=== PATIENT | female | born 1980 | race Caucasian/White ===

== ENCOUNTER 2018-02-17 17:52 | Emergency (ER) | payer OTHER, SELFPAY ==
[2018-02-17 17:53] VITALS: BP 160/102; PULSE 90; RESP 16; TEMP 36.6; O2SAT 99; BMI 35.5
--- NOTE | 2018-02-17 19:06 | EKG12_ITS ---
Test Reason : Blood Pressure : / mmHG Vent. Rate : 081 BPM Atrial Rate : 081 BPM P-R Int : 160 ms QRS Dur : 096 ms QT Int : 392 ms P-R-T Axes : 021 -02 001 degrees QTc Int : 455 ms Normal sinus rhythm Nonspecific T wave abnormality Abnormal ECG Confirmed by MARTINEZ THAO, LIZZIE ([id number]), deputy editor in chief GERMAINE SIDHU ([id number] on 02/21/2018 10:41:57 AM Referred By: Health Assessment Confirmed By:LIZZIE HENRIQUEZ MD
--- NOTE | 2018-02-17 19:07 | CT_ITS ---
STUDY: CTA CHEST REASON FOR EXAM: Female, 37 years old. Back pain RADIATION DOSAGE (If Supplied By Facility): CTDIvol = ( 19.60 ) mGy, DLP = ( 600.80 ) mGycm TECHNIQUE: The examination was performed with the intravenous administration of 100 ml of Isovue 370 contrast material. Post-processing of the angiographic images was performed, with multiplanar reformation and 3D reconstruction. Individualized dose optimization techniques were used for this CT. COMPARISON: None. FINDINGS: Normal enhancement of the main pulmonary artery and right and left pulmonary arteries. Normal enhancement of the bilateral peripheral pulmonary arteries. There is no demonstrated pulmonary embolism. Normal thoracic aorta and visualized great vessels. There is no demonstrated aortic dissection. Normal heart and pericardium. Normal mediastinum. Normal hilar regions. Normal visualized trachea and bronchi. The lungs are well expanded. Normal pulmonary parenchyma. Normal pleura. Normal chest wall structures. There are degenerative changes of thoracic spine. The limited images of the upper abdomen demonstrate a diffusely low in attenuation liver consistent fatty infiltration. CT/CTA Chest W/WO Contrast IMPRESSION: Degenerative changes of the thoracic spine. Fatty infiltration of the liver. Electronically Signed: Erlinda Bridges MD at 20:56 EDT Tel , Service support ,
--- NOTE | 2018-02-17 19:20 | RAD_ITS ---
STUDY: X-RAY CHEST REASON FOR EXAM: Female, 37 years old. Chest pain TECHNIQUE: Single frontal view of the chest. COMPARISON: May 26, 2017 FINDINGS: The lungs are clear and expanded. There is no demonstrated pleural abnormality. Normal size heart. Normal mediastinum and chikis. Normal visualized pulmonary arteries. Normal visualized aortic arch and descending thoracic aorta. Normal visualized thoracic spine. Normal visualized ribs, clavicles, and shoulders. There is no demonstrated abnormality of the visualized soft tissue structures of the upper abdomen. RAD/Chest 1 View (Portable) IMPRESSION: No acute cardiopulmonary process. Electronically Signed: Erlinda Bridges MD at 20:12 EDT Tel , Service support ,
[2018-02-17 19:55] LABS: Anion Gap 5 (5-15); BUN 11 mg/dL (7-18); BUN/Creat Ratio 15.3 RATIO (10-20); Calcium,Total 9.4 mg/dL (8.5-10.1); Chloride 106 mmol/L (98-107); Creatinine, Serum 0.72 mg/dL (0.55-1.02); EST Glomerular Filtration Rate 97 mL/min (>60); Est Glom Filt Rate - Afr Amer 118 mL/min (>60); Estimated Creatinine Clearance 101.12 ml/min; Glucose 90 mg/dL (74-106); Potassium 4.7 mmol/L (3.5-5.1); Sodium Level 137 mmol/L (136-145)
[2018-02-17] MEDS: 0.9% Normal Saline 1,000 ML 150 ML IV (19:58)
[2018-02-17 20:06] LABS: Hematocrit 47.1 % (37-47); Hemoglobin 15.4 g/dl (12.0-15.0); Mean Corp Hgb Conc 32.7 g/gl (32-36); Mean Corpuscular Hgb 27.5 pg (27.0-32.0); Mean Corpuscular Volume 84.3 fL (81-99); Mean Platelet Vol. 11.1 fl (6.2-12.0); Platelet Count 267 K/mm3 (150-450); RBC Distribution Width CV 13.3 % (11.6-14.6); RBC Distribution Width SD 41.2 fl (35.1-43.9); Red Blood Count 5.59 M/mm3 (4.2-5.4); White Blood Count 8.3 K/mm3 (4.4-11.0)
[2018-02-17 20:07] LABS: Scan Indicated on CBC? Y/N NO
--- NOTE | 2018-02-17 20:21 | ED.DCSUM_ITS ---
- ER Visit Summary Date of Service: 02/17/18 Chief Complaint: Back pain History of Present Illness: The patient is a 37 F who reports developing sharp back pain from her chest to her left scapula that lasted approximately 30 seconds this afternoon while sitting at rest. This was then followed by back spasm which is still achy in nature. She states she also had some swelling to the left side the neck that occurred at the same time. This seems to be now improving. Patient denies significant shortness of breath. She has no DVT risk factors. Physical Examination: Blood pressure significant for 1 6102, other vitals are normal. Head neck examination is unremarkable. I do not find any focal neck tenderness. Heart is regular rate and rhythm. On lung sounds are clear. Chest wall is nontender. Abdomen is soft nontender. Back examination was no reproducible tenderness. Extremity examination was normal strength and sensation throughout with strong distal pulses. Test Results: EKG is sinus at [address] change. Portable chest x-ray shows no acute process. CBC reveals hemoglobin slightly concentrated at 15.4. Chemistry studies are normal. Troponin is negative. CTA of the chest is obtained and shows degenerative changes of the thoracic spine. No evidence of PE or dissection. Emergency Department Course and Treatment: Patient declined anything for pain while here. She was observed on gambling monitor throughout. On repeat evaluation she denies any pain. Test results were discussed with patient and at bedside. She is encouraged to return for any recurrent symptoms. Treatment Plan: [] Disposition: Discharge Impression: Chest pain, uncertain etiology, resolved This note was generated with [employer] dictation software. It may contain incorrect words, spelling, and punctuation that were not noted in review of the chart prior to signing ED Disposition - Plan for ED Patient: Chief Complaint: Back Referrals: Salud Salinas MD [Primary Care Provider] -
[2018-02-17 21:05] LABS: Pregnancy, Serum, hCG Quali. NEGATIVE Negative (0-9 Nonpreg)
[2018-02-17 21:06] VITALS: BP 123/87; PULSE 63; RESP 12; O2SAT 99
[2018-02-17 21:47] VITALS: BP 128/97; PULSE 66; O2SAT 97
--- NOTE | 2018-02-17 21:47 | ED.DEP ---
ED Disposition - Plan for ED Patient: Disposition: Home or Assisted Living Chief Complaint: Back Instructions: ED Chest Pain Atypical Unkn Cause Referrals: Salud Salinas MD [Primary Care Provider] - As Needed
[2018-02-17 22:08] VITALS: BP 128/97
== END 2018-02-17 22:10 | disposition home or self-care (01) ==
PROVIDERS: Emergency Provider Emergency Medicine; Family Provider Internal Medicine; PCP Internal Medicine
DX: R07.9 Chest pain, unspecified (principal); Z72.0 Tobacco use
CPT/HCPCS: 71045; 71275; 80048; 84484; 84703; 85027; 93005; 96360; 96361; 99285; J7030; Q9967; A4216

== ENCOUNTER 2019-09-30 12:55 | Emergency (ER) | payer OTHER, SELFPAY ==
[2019-01-26 14:11] VITALS: BMI 35.5
[2019-09-30 12:57] VITALS: BP 147/91; PULSE 121; RESP 17; TEMP 38.3; O2SAT 92; BMI 35.8
[2019-09-30 13:11] VITALS: BP 147/91; PULSE 117; RESP 16; TEMP 38.5; O2SAT 91
--- NOTE | 2019-09-30 13:20 | EKG12_ITS ---
Test Reason : Blood Pressure : / mmHG Vent. Rate : 109 BPM Atrial Rate : 109 BPM P-R Int : 138 ms QRS Dur : 092 ms QT Int : 324 ms P-R-T Axes : 052 021 030 degrees QTc Int : 436 ms Sinus tachycardia Possible Left atrial enlargement Borderline ECG Confirmed by MARTINEZ THAO, LIZZIE ([id number]), film or videotape editor LCEMENTE SHEPHERD ([id number]) on 10/02/2019 8:17:16 AM Referred By: JEREMIAH Confirmed By:LIZZIE HENRIQUEZ MD
--- NOTE | 2019-09-30 13:44 | ED.VIS.GEN ---
History of Present Illness Chief Complaint: Cold Sx Informant: Patient Onset: Days - 5 days Context: Gradual Onset Current Severity: Moderate Maximum Severity: Moderate Narrative: Patient presents with flulike symptoms with cough, congestion, fever that started last Tuesday. She was seen at urgent care on Tuesday and had a rapid flu that was negative. She was seen by her doctor on Tuesday who went ahead and started her on Tamiflu because her symptoms are consistent with influenza. Patient presents to the ER today stating overall she is just not feeling better. She now has a sore throat and left ear pain as well. She is not been eating quite as much as normal. Last dose of Tylenol was at 10 AM this morning. Past Medical History - Allergies and Home Meds Allergies/Adverse Reactions: Allergies No Known Allergies Allergy (Verified 09/30/19 12:56) Primary Care Physician: Salud Salinas MD [Primary Care Provider] - Past Medical History: None Lives: Spouse/ Significant Other Smoking Status: Current every day smoker Review of Systems General: Reports: Chills, Fever Eyes: Denies: Visual changes - bilaterally ENT: Reports: Left ear pain Cardiovascular: Denies: Chest pain Respiratory: Reports: Dyspnea, Cough Gastrointestinal: Denies: Vomiting Musculoskeletal: Reports: Myalgias Neurological: Denies: Headache Hematologic: Denies: Easy bruising, Easy bleeding Allergy: Denies: Uticaria Physical Exam Vital Signs/Narrative: Vital Signs Temp Pulse Resp BP Pulse Ox 09/30/19 13:11 101.3 F H 117 H 16 147/91 H 91 09/30/19 12:57 100.9 F H 121 H 17 147/91 H 92 Inital Vital Signs reviewed: Yes General: Well nourished, Well developed Head: Normocephalic ENT: Moist mucous membranes, - - Ear canals are erythematous bilaterally. Left TM is clear. Right TM has some slight hazy fluid behind it. Posterior pharynx exam is unremarkable. Neck: Supple Cardiovascular: Tachycardia Respiratory: No distress, CTA bilaterally - Diminished on left base Abdomen: Soft, Nontender Extremities: Nontender Skin: Normal color, No rash Neurological: Alert, Oriented x3 Psychological: Normal affect Diagnostic/Tx/Re-eval Impressions Chest X-Ray 09/30/19 14:12 IMPRESSION: Left lingular left lower lobe pneumonia. Electronically Signed: Juanita Rebolledo MD at 14:54 EST Tel , Service support , 09/30/19 14:12 Chest PA and Lateral [RAD] Stat Laboratory Results 09/30/19 09/30/19 09/30/19 13:45 13:55 13:55 WBC 10.7 RBC 5.84 H Hgb 15.7 H Hct 49.0 H MCV 83.9 MCH 26.9 L MCHC 32.0 RDW Std Deviation 42.5 RDW Coeff of Johan 13.8 Plt Count 263 MPV 10.6 Immature Gran % (Auto) 0.400 Neut % (Auto) 73.0 H Lymph % (Auto) 16.7 L Mcdonald % (Auto) 8.8 Eos % (Auto) 0.6 Baso % (Auto) 0.5 Absolute Neuts (auto) 7.8 H Absolute Lymphs (auto) 1.78 Nucleated RBC % 0 Sodium 137 Potassium 3.5 Chloride 105 Carbon Dioxide 25.0 Anion Gap 7 BUN 8 Creatinine 0.86 Estim Creat Clear Calc 83.03 Est GFR (MDRD) Af Amer 94 Est GFR (MDRD) Non-Af 78 BUN/Creatinine Ratio 9.2 L Glucose 100 Calcium 9.0 Urine Color Yellow Urine Clarity Clear Urine pH 5.0 Ur Specific [place] 1.020 Urine Protein 30 H Urine Glucose (UA) Normal Urine Ketones 150 H Urine Occult Blood 50 H Urine Nitrite Negative Urine Bilirubin Negative Urine Urobilinogen Normal Ur Leukocyte Esterase 25 H Urine RBC 0 SEEN Urine WBC 0-5 SEEN Ur Squamous Epith Cells 0-5 SEEN Urine Bacteria 0 SEEN Urine Mucus 0 SEEN - EKG Initial EKG Interpretation: Sinus Tachycardia - Sinus tach at 109. No acute ischemia. QTC is 436. - Medical Decision Making Patient is given Toradol and a liter of IV fluids. On repeat evaluation she does feel improved. Test results are discussed with patient and at bedside. She does have evidence of an infiltrate will be treated with a course of Levaquin. Family asked about stopping the Tamiflu. It was started well outside the 48-hour window and advised them that she can stop this medication if she wishes. ED Disposition - Plan for ED Patient: Disposition: Home or Assisted Living Diagnosis: Pneumonia Instructions: PNEUMONIA (Adult) Prescriptions: Levofloxacin [Levaquin] 750 mg PO DAILY #4 tab Transmission Status: Pending to [id number] [facility] Referrals: Salud Salinas MD [Primary Care Provider] - 5-7 Days
[2019-09-30 13:54] LABS: Bacteria 0 SEEN /hpf (None Seen); Mucous, Urine 0 SEEN /hpf (<or=2+); Red Blood Cells-Urine 0 SEEN /hpf (0-5)
[2019-09-30 13:55] LABS: Color, Urine Yellow (Yellow); Glucose, Dipstick Normal (Normal); Leukocyte Esterase-Dipstick 25 /ul (Negative); Nitrite-Dipstick Negative (Negative); Occult Blood-Urine 50 /ul (Negative); Protein-Dipstick 30 mg/dl (Negative); Urine Bilirubin Dipstick Negative (Negative); Urine Clarity Clear (Clear); Urine Urobilinogen Normal (Normal)
[2019-09-30] MEDS: 0.9% Normal Saline 1,000 ML 1000 ML IV (13:56)
[2019-09-30 13:58] LABS: Ketone-Dipstick 150 mg/dl (Negative)
[2019-09-30 14:04] VITALS: BP 114/83; PULSE 101; RESP 16; TEMP 38.1; O2SAT 91
[2019-09-30] MEDS: Ketorolac 30 MG/ML Syringe IV (14:04)
[2019-09-30 14:07] LABS: Absolute Lymphocyte Count 1.78 X10^3/uL (0.83-4.51); Absolute Neutrophil Count 7.8 X10^3/uL (2.0-7.7); Basophil# 0.05 X10^3/uL; Basophil% 0.5 % (0-1); Eosinophil# 0.06 X10^3/uL; Eosinophils% 0.6 % (0-5); Hemoglobin 15.7 g/dL (12.0-15.0); Lymphocyte # 1.78 X10^3/ul (4.0); Lymphocyte % 16.7 % (19-41); Mean Corpuscular Hgb 26.9 pg (27.0-32.0); Mean Corpuscular Volume 83.9 fL (81-99); Mean Platelet Vol. 10.6 fl (6.2-12.0); Monocyte# 0.94 X10^3/uL; Monocyte% 8.8 % (0-10); NRBC Flagged by Analyzer 0 % (0-5); Neutrophil # 7.82 X10^3/uL (2.7-7.7); Platelet Count 263 K/mm3 (150-450); RBC Distribution Width CV 13.8 % (11.6-14.6); RBC Distribution Width SD 42.5 fl (35.1-43.9); Red Blood Count 5.84 M/mm3 (4.2-5.4); White Blood Count 10.7 K/mm3 (4.4-11.0)
[2019-09-30 14:09] LABS: Squamous Epithelial Cells - UA 0-5 SEEN /hpf (5-10); White Blood Cells 0-5 SEEN /hpf (0-5)
--- NOTE | 2019-09-30 14:12 | RAD_ITS ---
STUDY: X-RAY CHEST REASON FOR EXAM: Female, 39 years old. COLD SYMPTOMS TECHNIQUE: PA and lateral views of the chest. COMPARISON: February 17, 2018 FINDINGS: There are patchy left lower lobe and lingular opacities. There is no demonstrated pleural abnormality. Normal size heart. Normal mediastinum and chikis. Normal visualized pulmonary arteries. Normal visualized aortic arch and descending thoracic aorta. Normal visualized thoracic spine. Normal visualized ribs, clavicles, and shoulders. There is no demonstrated abnormality of the visualized soft tissue structures of the upper abdomen. RAD/Chest PA and Lateral IMPRESSION: Left lingular left lower lobe pneumonia. Electronically Signed: Juanita Rebolledo MD at 14:54 EST Tel , Service support ,
[2019-09-30 14:21] LABS: Anion Gap 7 (5-15); BUN 8 mg/dL (7-18); BUN/Creat Ratio 9.2 RATIO (10-20); Chloride 105 mmol/L (98-107); Creatinine, Serum 0.86 mg/dL (0.55-1.02); EST Glomerular Filtration Rate 78 mL/min (>60); Est Glom Filt Rate - Afr Amer 94 mL/min (>60); Estimated Creatinine Clearance 83.03 ml/min; Glucose 100 mg/dL (74-106); Potassium 3.5 mmol/L (3.5-5.1); Sodium Level 137 mmol/L (136-145)
[2019-09-30 15:15] VITALS: BP 114/80; PULSE 99; RESP 18; O2SAT 90
[2019-09-30] MEDS: levoFLOXacin 750 MG Tablet PO (15:48)
[2019-09-30 15:51] VITALS: BP 108/79; PULSE 92; RESP 18; O2SAT 93
== END 2019-09-30 15:52 | disposition home or self-care (01) ==
PROVIDERS: Emergency Provider Emergency Medicine; PCP Internal Medicine
DX: J18.9 Pneumonia, unspecified organism (principal); J02.9 Acute pharyngitis, unspecified; H92.02 Otalgia, left ear; Z72.0 Tobacco use
CPT/HCPCS: 71046; 80048; 81001; 85025; 93005; 96361; 96374; 99285; J7030

== ENCOUNTER 2020-05-26 19:15 | Outpatient (RCR) | payer OTHER, SELFPAY | END 2020-05-28 23:59 | LOC: EMPH 19:15 | PROVIDERS: PCP Internal Medicine; Visit Provider Family Medicine Geriatric Medicine | DX: Z11.59 Encounter for screening for other viral diseases (principal) | CPT/HCPCS: 87635; U0003 ==

== ENCOUNTER 2020-06-27 03:35 | Outpatient (RCR) | payer OTHER, SELFPAY ==
[2020-05-31 13:37] VITALS: BMI 35.8
== END 2020-06-28 23:59 ==
LOC: EMPH 03:35
PROVIDERS: PCP Internal Medicine; Visit Provider Family Medicine Geriatric Medicine
DX: Z03.818 Encounter for observation for suspected exposure to other biological agents ruled out (principal)
CPT/HCPCS: 87426

== ENCOUNTER 2020-07-23 07:37 | Outpatient (RCR) | payer OTHER, SELFPAY ==
[2020-05-31 13:37] VITALS: BMI 35.8
== END 2020-07-28 23:59 ==
LOC: EMPH 07:37
PROVIDERS: PCP Internal Medicine; Visit Provider Family Medicine Geriatric Medicine
DX: Z03.818 Encounter for observation for suspected exposure to other biological agents ruled out (principal)
CPT/HCPCS: 87426

== ENCOUNTER 2020-08-19 17:04 | Emergency (ER) | payer OTHER, SELFPAY ==
[2020-08-19 17:04] VITALS: BP 161/103; PULSE 86; RESP 16; TEMP 36.4; O2SAT 100; BMI 33.4
--- NOTE | 2020-08-19 17:21 | CT_ITS ---
STUDY: CT ABDOMEN AND PELVIS WITH CONTRAST REASON FOR EXAM: Female, 40 years old. LEFT FLANK PAIN WITH DYSURIA, EVAL FOR PYELONEPHRITIS RADIATION DOSAGE (If Supplied By Facility): CTDIvol = ( 19.59 ) mGy, DLP = ( 2142.26 ) mGycm TECHNIQUE: Transaxial images were obtained from the dome of the diaphragm to the symphysis pubis without oral contrast. IV 100mL Isovue-300 was administered. Sagittal and coronal images were reconstructed. Individualized dose optimization techniques were used for this CT. COMPARISON: None. FINDINGS: The visualized lung bases are unremarkable. The visualized portions of the heart are within normal limits. Normal liver. Normal gallbladder and extrahepatic biliary system. Normal spleen. Normal pancreas. Normal bilateral adrenal glands. There is a tiny nonobstructing left renal calculus. Position however there is mild pelvocaliectasis and hydroureter secondary to tiny calculus at the ureterovesical junction measuring approximately 2 mm in size.. Right kidneys normal Normal visualized stomach. Normal small intestine. Normal colon. The appendix is visualized and appears normal. Normal abdominal aorta. Normal inferior vena cava. Normal retroperitoneum. Incompletely distended thick-walled bladder likely of no significance. Postop change status post bilateral tubal ligation. Normal abdominal wall. Normal osseous structures. CT/Abdomen/Pelvis W IV Cont ONLY IMPRESSION: Left nephrolithiasis. Mild left hydroureteronephrosis secondary to tiny calculus in the distal ureter at the ureterovesical junction Electronically Signed: Santiago Feng MD at 18:52 EST , Service support ,
--- NOTE | 2020-08-19 17:25 | ED.VIS.GEN ---
History of Present Illness Chief Complaint: Flank Pain Informant: Patient Narrative: Patient is a 40-year-old previously female who presents to the emergency department for left flank pain. Started earlier today. She states she has had this pain before when she had a kidney infection. She said she has had some urinary frequency but denies any dysuria or hematuria. She denies any history of kidney stones. The pain is sharp in nature. She currently rates as a 7 out of 10. She tried taking Tylenol for this which did not give her any relief. She states she has been nauseous but not vomiting. She had a few episodes of loose bowel movements. She has had chills but no fevers. She does not know aggravating or relieving factors. No chest pain or shortness of breath. Past Medical History - Allergies and Home Meds Allergies/Adverse Reactions: Allergies No Known Allergies Allergy (Verified 08/19/20 17:06) Primary Care Physician: Nash Downs MD [STAFF PHYSICIAN] - 3-5 Days if not improving Salud Salinas MD [Primary Care Provider] - Prior records reviewed: Yes Smoking Status: Current every day smoker Review of Systems All systems negative except as indicated General: Reports: Chills. Denies: Fever, Sweats Eyes: Denies: Visual changes - bilaterally, Diplopia ENT: Denies: Rhinorrhea, Sore throat Cardiovascular: Denies: Chest pain, Palpitations Respiratory: Denies: Dyspnea, Cough, Dyspnea on exertion Gastrointestinal: Reports: Abdominal pain, Nausea. Denies: Vomiting, Diarrhea, Melena, Hematochezia Genitourinary: Reports: Frequency. Denies: Dysuria, Hematuria Musculoskeletal: Denies: Back pain, Extremity Pain Skin: Denies: Rash, Wounds Neurological: Denies: Headache, Weakness, Numbness Physical Exam Vital Signs/Narrative: Vital Signs Temp Pulse Resp BP Pulse Ox 08/19/20 17:04 97.6 F L 86 16 161/103 H 100 Inital Vital Signs reviewed: Yes General: Well nourished, Well developed, No Acute Distress Head: Normocephalic, Atraumatic Eyes: Perrl, EOMI ENT: Moist mucous membranes, No rhinorrhea Neck: Supple, Nontender Cardiovascular: Regular rate, Regular rhythm, No murmurs Respiratory: No distress, CTA bilaterally, Chest nontender Abdomen: Soft, Nondistended, Normal bowel sounds, Tender - Left lateral abdominal wall. No rebound or guarding.. Negative for: Vegas's sign Back: Nontender, Normal Inspection Extremities: Nontender, No edema Skin: Normal color, No rash Neurological: Alert, Oriented x3, Normal Strength, Normal Sensation Psychological: Normal affect, Normal Mood Diagnostic/Tx/Re-eval - Medical Decision Making Patient presents to the emergency department for left lateral abdominal wall. She was sent in by urgent care for further work-up. Will treat symptomatically with a dose of Toradol. Will check urinalysis, basic lab work and CT scan of the abdomen/pelvis. Lab work did not reveal any significant acute abnormality. Kidney function within normal limits. Urine did not show any signs of infection. CT scan did show a small partially obstructing ureteral stone. This is at the UVJ. Pain is well controlled. She will be sent home with pain medicine and referral for urology. If the pain becomes unbearable or shows any fever/chills she is to return to the emergency department. She understands and is agreeable this plan. She is discharged home in stable condition. All questions were answered. ED Disposition - Plan for ED Patient: Disposition: Home or Assisted Living Diagnosis: Ureterolithiasis, Flank pain, Hematuria Instructions: ED Kidney Stone w/ Colic Prescriptions: Naproxen [Naprosyn] 500 mg PO BID #14 tab Transmission Status: Received by [facility] Hydrocodone/Acetaminophen [[place] 5-325 Tablet] 1 ea PO Q6H 3 Days #10 tab Transmission Status: Received by [facility] Ondansetron [Zofran Odt] 4 mg PO Q8H PRN PRN #10 tab PRN Reason: Nausea Transmission Status: Received by [facility] Referrals: Saldu Salinas MD [Primary Care Provider] - Nash Downs MD [STAFF PHYSICIAN] - 3-5 Days if not improving
[2020-08-19 17:46] LABS: Absolute Lymphocyte Count 2.31 X10^3/uL (0.83-4.51); Absolute Neutrophil Count 5.5 X10^3/uL (2.0-7.7); Basophil# 0.06 X10^3/uL; Basophil% 0.7 % (0-1); Eosinophil# 0.14 X10^3/uL; Eosinophils% 1.6 % (0-5); Hematocrit 48.1 % (37-47); Hemoglobin 15.4 g/dL (12.0-15.0); Lymphocyte # 2.31 X10^3/ul (4.0); Lymphocyte % 26.8 % (19-41); Mean Corpuscular Hgb 27.7 pg (27.0-32.0); Mean Corpuscular Volume 86.7 fL (81-99); Mean Platelet Vol. 10.9 fl (6.2-12.0); Monocyte# 0.63 X10^3/uL; Monocyte% 7.3 % (0-10); NRBC Flagged by Analyzer 0 % (0-5); Neutrophil # 5.45 X10^3/uL (2.7-7.7); Neutrophil % 63.3 % (47-70); Platelet Count 274 K/mm3 (150-450); RBC Distribution Width CV 12.9 % (11.6-14.6); RBC Distribution Width SD 40.6 fl (35.1-43.9); Red Blood Count 5.55 M/mm3 (4.2-5.4); White Blood Count 8.6 K/mm3 (4.4-11.0)
[2020-08-19] MEDS: Ketorolac 15 MG/ML Vial IV (17:47)
[2020-08-19 17:49] LABS: Bacteria 0 SEEN /hpf (None Seen); White Blood Cells 0 SEEN /hpf (0-5)
[2020-08-19 18:08] LABS: Color, Urine Yellow (Yellow); Glucose, Dipstick Normal (Normal); Ketone-Dipstick Negative (Negative); Leukocyte Esterase-Dipstick 25 /ul (Negative); Nitrite-Dipstick Negative (Negative); Occult Blood-Urine 250 /ul (Negative); Protein-Dipstick 15 mg/dl (Negative); Specific Gravity, Urine 1.015 (1.002-1.030); Urine Bilirubin Dipstick Negative (Negative); Urine Clarity Clear (Clear); Urine Urobilinogen Normal (Normal); Urine pH 6.5 (5.0 - 8.0)
[2020-08-19 18:08] LABS: ALB/GLOB Ratio 1.2 RATIO (0.9-2.4); AST(SGOT) 10 U/L (15-37); Alanine Aminotransfer ALT/SGPT 23 U/L (13-56); Albumin, Serum 4.1 g/dL (3.2-5.0); Alkaline Phosphatase 71 U/L (45-117); Anion Gap 4 (5-15); BUN 12 mg/dL (7-18); BUN/Creat Ratio 14.9 RATIO (10-20); Calcium,Total 9.2 mg/dL (8.5-10.1); Chloride 107 mmol/L (98-107); Creatinine, Serum 0.81 mg/dL (0.55-1.02); EST Glomerular Filtration Rate 84 mL/min (>60); Est Glom Filt Rate - Afr Amer 102 mL/min (>60); Estimated Creatinine Clearance 87.29 ml/min; Globulin 3.4 g/dL (2.2-4.2); Glucose 94 mg/dL (74-106); Lipase 79 U/L (73-393); Protein, Total 7.5 g/dL (6.4-8.2); Sodium Level 138 mmol/L (136-145)
[2020-08-19 18:12] LABS: Internal QC Validated? YES +Cl - CLEAR BKGD; Pregnancy, Urine Negative Negative
[2020-08-19 18:20] LABS: Mucous, Urine 1+ /hpf (<or=2+); Red Blood Cells-Urine 25-50 SEEN /hpf (0-5); Squamous Epithelial Cells - UA 0-5 SEEN /hpf (5-10)
== END 2020-08-19 19:45 | disposition home or self-care (01) ==
PROVIDERS: Emergency Provider Emergency Medicine; PCP Internal Medicine
DX: N20.1 Calculus of ureter (principal); R10.9 Unspecified abdominal pain; R31.9 Hematuria, unspecified; F17.200 Nicotine dependence, unspecified, uncomplicated
CPT/HCPCS: 74177; 80053; 81001; 81025; 83690; 85025; 87086; 87088; 96374; 99283; Q9967; A4216

== ENCOUNTER 2020-08-27 14:40 | Outpatient (RCR) | payer OTHER, SELFPAY ==
[2020-05-31 13:37] VITALS: BMI 35.8
== END 2020-08-28 23:59 ==
LOC: EMPH 14:40
PROVIDERS: PCP Internal Medicine; Referring Provider Family Medicine Geriatric Medicine; Visit Provider Family Medicine Geriatric Medicine
DX: Z03.818 Encounter for observation for suspected exposure to other biological agents ruled out (principal)
CPT/HCPCS: 87426

== ENCOUNTER 2020-09-10 07:30 | Outpatient (RCR) | payer OTHER, SELFPAY | END 2020-09-28 23:59 | LOC: EMPH 07:30 | PROVIDERS: PCP Internal Medicine; Referring Provider Family Medicine Geriatric Medicine; Visit Provider Family Medicine Geriatric Medicine | DX: Z03.818 Encounter for observation for suspected exposure to other biological agents ruled out (principal) | CPT/HCPCS: 87426 ==

== ENCOUNTER 2020-10-20 08:05 | Outpatient (RCR) | payer OTHER, SELFPAY | END 2020-10-26 23:59 | LOC: EMPH 08:05 | PROVIDERS: PCP Internal Medicine; Referring Provider Family Medicine Geriatric Medicine; Visit Provider Family Medicine Geriatric Medicine | DX: Z03.818 Encounter for observation for suspected exposure to other biological agents ruled out (principal) ==

== ENCOUNTER 2021-05-04 15:00 | Emergency (ER) | payer OTHER, SELFPAY ==
[2021-05-04 15:01] VITALS: BP 157/109; PULSE 82; RESP 16; TEMP 36.7; O2SAT 97; BMI 35.5
[2021-05-04 15:47] VITALS: BP 157/109; PULSE 82; RESP 16; TEMP 36.7; O2SAT 97
--- NOTE | 2021-05-04 16:08 | RAD_ITS ---
STUDY: X-RAY CHEST REASON FOR EXAM: Female, 40 years old. chest pain TECHNIQUE: Single AP portable view of the chest. COMPARISON: 09/30/2019. FINDINGS: The lungs are clear and expanded. There is no demonstrated pleural abnormality. Normal size heart. Normal mediastinum and chikis. Normal visualized pulmonary arteries. Normal visualized aortic arch and descending thoracic aorta. Normal visualized thoracic spine. Normal visualized ribs, clavicles, and shoulders. There is no demonstrated abnormality of the visualized soft tissue structures of the upper abdomen. RAD/Chest 1 View (Portable) IMPRESSION: Normal x-ray examination of the chest. Electronically Signed: Celia Crum MD at 17:48 EDT Tel , Service support ,
--- NOTE | 2021-05-04 16:08 | EKG12_ITS ---
Test Reason : CP Blood Pressure : / mmHG Vent. Rate : 077 BPM Atrial Rate : 077 BPM P-R Int : 144 ms QRS Dur : 094 ms QT Int : 390 ms P-R-T Axes : 024 028 013 degrees QTc Int : 441 ms Normal sinus rhythm Normal ECG Confirmed by MEEK THAO, SHANE ([id number]), fashion editor CLEMENTE SHEPHERD ([id number]) on 05/06/2021 9:17:09 AM Referred By: ISAI Confirmed By:SHANE EDEN MD
--- NOTE | 2021-05-04 16:20 | ED.VIS.CHEST ---
HPI History of Present Illness Chief Complaint: Chest Pain Detail of Chief Complaint: Covid positive. Informant: patient Onset/Context/Timing Onset: Days Timing: Intermittent Quality: Positive for Dull Location: Right Chest Current Severity: Gone Maximum Severity: Mild Worsened By: Nothing Associated Symptoms: Positive for Cough; Negative for Nausea, Vomiting, Diaphoresis, Dyspnea, Fever, Lightheadedness, Acid Reflux and Palpitations Narrative Prior Similar Symptoms: No Recent Illness/Hospitalization: No CVD Risk Factors: Positive for Smoking; Negative for Hypertension, Diabetes, Hypercholesterolemia and Family History 1' </=55 PE Risk Factors: Negative for Recent Travel/Surgery, Recent Immobilization, Prior DVT or PE, Cancer and OCP + Smoking + >/=35 TAD Risk Factors: Negative for Marfan's Syndrome and Hypertension PFSH PFSH Medical History Back pain Chest pain Hemorrhoids Home Medications naproxen 500 mg PO BID #14 tab 08/19/20 [Rx Last Taken Unknown] ondansetron 4 mg PO Q8H PRN PRN #10 tab 08/19/20 [Rx Last Taken Unknown] Allergy/AdvReac Type Severity Reaction Status Date / Time No Known Allergies Allergy Verified 05/04/21 15:01 Surgical History History of laparoscopy Hx of section Hx of tympanostomy tubes Tubal ligation status Social History Smoking Status: Current every day smoker tobacco type: cigarettes alcohol intake: never ROS ROS ED ROS Narrative Denies recent illness yesterday. Started yesterday. Review of Systems ROS Unobtainable: Denies due to encephalopathy Constitutional Constitutional ED: Denies chills or fever(s) Eyes Eyes: Denies none or change in vision ENT ENT ED: Denies ear pain or sore throat Cardiovascular Cardiovascular: Reports as per HPI; Denies palpitations or racing heartbeat Respiratory/Chest Respiratory/Chest: Reports cough; Denies dyspnea or sputum Gastrointestinal Gastrointestinal: Denies abdominal pain, constipation, diarrhea, melena, nausea or vomiting Genitourinary Genitourinary ED: Denies dysuria or hematuria Musculoskeletal Musculoskeletal: Denies arthralgias or myalgias Integumentary Denies abscess or rash Neurologic Neurologic: Denies headache(s) Psychiatric Psychiatric: Denies depression Endocrine Endocrinology: Denies polyuria Hematologic/Lymphatic Hematologic/Lymphatic: Denies easy bruising Allergic/Immunologic Allergic/Immunologic ED: Denies urticaria EXAM Physical Exam Narrative Exam Narrative: Well-appearing 40-year-old female. No acute distress. Vital signs are stable afebrile. Pulse ox 97% on room air no signs of hypoxia. HEENT exam normal. Neck nontender no JVD no lymphadenopathy. Lungs have a few scattered expiratory wheezes. No rales or rhonchi. Equal symmetrical.. Heart regular rate and rhythm rate about 80 no murmur. Chest nontender. Abdomen soft nontender. Moving all 4 extremities. Calves are nontender without edema or cords. Back nontender. Neurologic exam normal. Const Vital Signs: 05/04/21 15:01 05/04/21 15:47 05/04/21 16:29 Temperature 98.0 F 98.0 F Temperature Source Temporal Temporal Pulse Rate 82 82 Respiratory Rate 16 16 Blood Pressure 157/109 H 157/109 H Blood Pressure Mean 125 125 Pulse Ox 97 97 95 Oxygen Delivery Method Room Air Room Air Room Air 05/04/21 17:03 Temperature Temperature Source Pulse Rate 59 L Respiratory Rate 15 Blood Pressure 109/90 H Blood Pressure Mean 96 Pulse Ox 95 Oxygen Delivery Method Room Air Positive well nourished and well developed; Negative for cachectic, contractures or unkempt General Appearance ED: well developed and NAD; Negative for unkempt, cachectic, contractures or pallor Nutritional Appearance: Negative for cachectic HEENT Reports moist mucous membranes normocephalic and atraumatic; Negative for trauma or tenderness Eyes PERRL and EOMs intact bilaterally Neck no lymphadenopathy, supple and no JVD General: Negative for tenderness Chest Wall inspection of chest normal and palpation of chest normal Chest: Negative for tenderness Resp normal respiratory effort and clear to auscultation bilaterally Resp Narrative: Few scattered expiratory wheezes. Effort and Inspection: respiratory distress Auscultation: wheezes; Negative for rales or rhonchi Cardio regular rate, regular rhythm, S1 normal heart sound, S2 normal heart sound and no murmurs Rate: Negative for tachycardic GI normal to inspection, nondistended, normoactive bowel sounds, soft to palpation, non-tender, non-distended and no masses; Negative for hepatosplenomegaly Auscultation: Negative for hyperactive bowel sounds Back/Spine no CVA tenderness General Back: Negative for CVA tenderness Extremity normal to inspection General Extremety ED: Negative for edema, pulses abnormal or tenderness General Extremity: Negative for edema or pulses abnormal Neuro oriented x3 and CN's II-XII intact bilaterally Sensorium / Orientation: awake, alert, oriented to person, oriented to place and oriented to time Motor Exam: strength 5/5 throughout Psych mental status grossly normal Appearance: Negative for unkempt Skin no rashes or lesions noted and no wounds General Skin Exam: Negative for jaundice or pallor Heart Score History: Slightly/Non-Suspicious ECG: Normal Age: </= 45 years Risk Factors: No Risk Factors Troponin: </= Normal Limit Score: 0 MDM MDM MDM Narrative Medical decision making narrative: 40-year-old female with 8 typical nonexertional chest pain. 2 days ago lasted less than a minute. Today 30 minutes or so. Occurred while she was sitting watching TV. Denies any recent exertional chest pain or exertional dyspnea. No history of DVT or PEs. No hemoptysis. No leg pain or swelling. She is Covid positive. Repeat exam patient doing well at 6:22 PM. She had I went over all of her test results she will be discharged home. Lab Data Attestation: I reviewed the patient's lab results. Lab results narrative: CBC unremarkable white count of 5. Hemoglobin 15. Electrolytes gap of 6 normal creatinine. Troponin IV. Chest x-ray unremarkable read both by myself and the radiologist. Labs: Laboratory Results - last 24 hr 05/04/21 05/04/21 16:22 16:22 WBC 5.9 RBC 5.42 H Hgb 15.0 Hct 46.8 MCV 86.3 MCH 27.7 MCHC 32.1 RDW Std Deviation 41.1 RDW Coeff of Johan 13.1 Plt Count 215 MPV 11.2 Immature Gran % (Auto) 0.300 Neut % (Auto) 58.4 Lymph % (Auto) 31.9 [place] % (Auto) 7.6 Eos % (Auto) 1.3 Baso % (Auto) 0.5 Absolute Neuts (auto) 3.5 Absolute Lymphs (auto) 1.89 Nucleated RBC % 0 Sodium 138 Potassium 4.1 Chloride 109 H Carbon Dioxide 23.0 Anion Gap 6 BUN 10 Creatinine 0.65 Estim Creat Clear Calc 108.78 Est GFR (MDRD) Af Amer 130 Est GFR (MDRD) Non-Af 107 BUN/Creatinine Ratio 15.4 Glucose 95 Calcium 9.2 Troponin I High Sens 4 Radiography Chest X-Ray - ED: 1 View, Read by ED Physician, Normal, Heart, Lungs, Mediastinum, Bony Structures, No Acute Disease and Chronic Changes Diagnostic Testing: Radiology Impression Chest X-Ray 05/04/21 16:08 IMPRESSION: Normal x-ray examination of the chest. Electronically Signed: Celia Crum MD at 17:48 EDT Tel , Service support , Rhythm Strip Rhythm Strip: Sinus Rhythm Rate: 77 Ectopy: None EKG Initial EKG: Attestation: I personally reviewed and interpreted this EKG as follows: Interpretation: Sinus Rhythm and No Acute Injury Pattern Comments: Normal sinus rhythm rate is 77 no acute signs of [place] or ischemia. Discharge Plan Triage Chief Complaint: Chest Pain ED Provider: Josesito Delarosa Dx/Rx/DC Orders Clinical Impression: COVID Instructions: ED Chest Pain, Uncertain Cause, Human Coronaviruses Prescriptions: No Action naproxen 500 MG tablet 500 mg PO BID Qty: 14 RF: 0 ondansetron 4 MG tablet 4 mg PO Q8H PRN PRN (Reason: Nausea) Qty: 10 RF: 0 Primary Care Provider: Salud Salinas Referrals: Salud Salinas MD [Primary Care Provider] - 3-5 Days if not improving Activity Restrictions/Additional Instructions: Plenty of fluids and rest. Follow-up with your doctor as needed. Tylenol Motrin for pain. Disposition Disposition: Home, Self Care
[2021-05-04 16:29] VITALS: O2SAT 95
[2021-05-04 16:47] LABS: Anion Gap 6 (5-15); BUN 10 mg/dL (7-18); BUN/Creat Ratio 15.4 RATIO (10-20); Calcium,Total 9.2 mg/dL (8.5-10.1); Chloride 109 mmol/L (98-107); Creatinine, Serum 0.65 mg/dL (0.55-1.02); EST Glomerular Filtration Rate 107 mL/min (>60); Est Glom Filt Rate - Afr Amer 130 mL/min (>60); Estimated Creatinine Clearance 108.78 ml/min; Glucose 95 mg/dL (74-106); Potassium 4.1 mmol/L (3.5-5.1); Sodium Level 138 mmol/L (136-145); Troponin-I HS 4 pg/mL (3.0-54.0)
[2021-05-04 16:53] LABS: Absolute Lymphocyte Count 1.89 X10^3/uL (0.83-4.51); Absolute Neutrophil Count 3.5 X10^3/uL (2.0-7.7); Basophil# 0.03 X10^3/uL; Basophil% 0.5 % (0-1); Eosinophil# 0.08 X10^3/uL; Eosinophils% 1.3 % (0-5); Hematocrit 46.8 % (37-47); Lymphocyte # 1.89 X10^3/ul (0.83-4.51); Lymphocyte % 31.9 % (19-41); Mean Corp Hgb Conc 32.1 g/dL (32-36); Mean Corpuscular Hgb 27.7 pg (27.0-32.0); Mean Corpuscular Volume 86.3 fL (81-99); Mean Platelet Vol. 11.2 fl (6.2-12.0); Monocyte# 0.45 X10^3/uL; Monocyte% 7.6 % (0-10); NRBC Flagged by Analyzer 0 % (0-5); Neutrophil # 3.46 X10^3/uL (2.7-7.7); Neutrophil % 58.4 % (47-70); Platelet Count 215 K/mm3 (150-450); RBC Distribution Width CV 13.1 % (11.6-14.6); RBC Distribution Width SD 41.1 fl (35.1-43.9); Red Blood Count 5.42 M/mm3 (4.2-5.4); White Blood Count 5.9 K/mm3 (4.4-11.0)
[2021-05-04 17:03] VITALS: BP 109/90; PULSE 59; RESP 15; O2SAT 95
[2021-05-04 18:50] VITALS: BP 109/82; PULSE 60; RESP 12; O2SAT 97
== END 2021-05-04 18:52 | disposition home or self-care (01) ==
PROVIDERS: Emergency Provider Emergency Medicine; PCP Internal Medicine
DX: U07.1 COVID-19 (principal); F17.210 Nicotine dependence, cigarettes, uncomplicated
CPT/HCPCS: 71045; 80048; 84484; 85025; 93005; 99284